=== PATIENT | female | born 1995 | race Two or more races ===

== ENCOUNTER → 2019-06-27 | Outpatient (REF) | payer OTHER | LOC: M SFHCLERA 14:56 | PROVIDERS: ATTEND Physician Assistant | DX: J02.9 Acute pharyngitis, unspecified (principal) ==

== ENCOUNTER 2019-12-19 16:30 | Emergency (ER) | payer OTHER ==
[~2019-12-19] VITALS: Ht 160 cm; Wt 132.1 kg
[2019-12-19] MEDS ORDERED: NS 1,000 ML IV ONE (17:00)
--- NOTE | 2019-12-19 18:36 | REPVR ---
PROCEDURE INFORMATION: Exam: US Pelvis Complete, Transabdominal and US Pelvis, Transvaginal Exam date and time: 12/19/2019 5:56 PM Age: 24 years old Clinical indication: Menstruation abnormalities; Excessive menstruation; Additional info: Heavy vag bleeding since 1329 TECHNIQUE: Imaging protocol: Real-time transabdominal and transvaginal pelvic ultrasound (complete) with image documentation. Transvaginal imaging was used for better evaluation of the endometrium and adnexa. COMPARISON: No relevant prior studies available. FINDINGS: Uterus/cervix: Suspect endometrial thickening up to 13 mm. Endometrium is heterogeneous, and evaluation is limited because of endometrial contents, with contents reportedly observed moving by the teacher selection specialist within the endometrial cavity. This suggests blood products in the endometrial cavity. Mobile contents of the endometrial cavity also limit evaluation for color flow in the endometrium. The uterus measures 7.9 x 3.3 x 3.6 cm. Right adnexa: The right ovary is normal in size and echogenicity measuring 2.2 x 1.5 x 1.6 cm, with volume of 3 cc. Left adnexa: The left ovary is normal in size and echogenicity measuring 2.8 x 1.7 by 1.6 cm, with volume of 4 cc. Free fluid: No free fluid is seen. Bladder: Grossly unremarkable. Other findings: Additional findings: Duplex Doppler evaluation of the ovaries bilaterally is limited. IMPRESSION: 1. Suspect endometrial thickening up to 13 mm, but there also appears to be complex mobile material within the endometrial cavity limiting its evaluation and presumably representing blood products. Mobile presumed blood products in the endometrial cavity also limit evaluation for endometrial color flow. Etiology of heavy vaginal bleeding is not clearly identified on this study. Female pelvic MR with and without intravenous gadolinium may be helpful for further characterization. 2. Unremarkable ovaries. Electronically signed by: Kristine Kumari On 12/19/2019 18:36:24 PM
[2019-12-19 18:37] LABS: BASO % 0.3 % (0.0-1.0); EOS # 0.1 10^3/uL (0.0-0.5); EOS % 0.7 % (0.0-3.0); HEMATOCRIT 28.9 % (36.0-47.0); LYMPH # 3.2 10^3/uL (1.5-5.0); LYMPH % 32.7 % (24.0-44.0); MEAN CORPUSCULAR HEMOGLOBIN 24.7 pg (27.0-33.0); MEAN CORPUSCULAR HGB CONC 31.1 g/dl (32.0-36.5); MEAN CORPUSCULAR VOLUME 79.4 fl (80.0-96.0); MONO # 0.6 10^3/uL (0.0-0.8); MONO % 6.2 % (0.0-5.0); NEUTROPHILS # 5.9 10^3/uL (1.5-8.5); NEUTROPHILS % 59.5 % (36.0-66.0); PLATELET COUNT, AUTOMATED 446 10^3/uL (150-450); RED BLOOD COUNT 3.64 10^6/uL (4.00-5.40); WHITE BLOOD COUNT 9.9 10^3/uL (4.0-10.0)
[2019-12-19 20:39] VITALS: BP 130/75
--- NOTE | 2019-12-20 13:25 | ED PDOC ---
Post-Departure Follow-Up pelvic us faxed to [facility]bbins for fu Hellen Martinez MD Dec 20, 2019 13:25
== END 2019-12-19 20:57 | disposition home or self-care (01) ==
LOC: M ED 16:30
DX: N92.0 Excessive and frequent menstruation with regular cycle (principal); D64.9 Anemia, unspecified; R73.03 Prediabetes